=== PATIENT | female | born 1970 | race Caucasian/White ===

== ENCOUNTER 2018-08-30 05:27 | Day surgery (SDC) | payer OTHER ==
[~2018-08-30] VITALS: Ht 177.8 cm; Wt 85.8 kg
[2018-08-30] VITALS (12 sets, daily range): BP systolic 105–117; BP diastolic 20–73; PULSE 64–76; RESP 14–18; Ht 177.8 cm; Wt 85.8 kg
[2018-08-30] MEDS ORDERED: CEFAZOLIN 2 GM/50 ML (PMX) 50 ML IVPB ONE (06:00)
[2018-08-30] MEDS ORDERED: SOD CHLORIDE 0.9% 1,000 ML IV SCH (06:00)
[2018-08-30] MEDS ORDERED: MULTI PO (06:42)
[2018-08-30] MEDS ORDERED: CALC1TAB79 PO (06:43)
[2018-08-30] MEDS ORDERED: FER325 PO (06:43)
[2018-08-30] MEDS ORDERED: MIDAZOLAM 1 MG/ML 2 ML INJ ONE (07:23)
[2018-08-30] MEDS ORDERED: FENTAnyl 50 MCG/ML VIAL ONE (07:23)
[2018-08-30] MEDS ORDERED: LIDOCAINE 100 MG SYRINGE ONE (07:23)
[2018-08-30] MEDS ORDERED: PROPOFOL 100 ML ONE (07:23)
--- NOTE | 2018-08-30 07:27 | PREAC ---
Date/Time of Note Date/Time of Note DATE: 08/30/18 TIME: 07:16 Anesthesia Eval and Record Evaluation Time Pre-Procedure Interview DATE: 08/30/18 TIME: 07:16 Age 48 Sex female NPO: 8 hrs Preoperative diagnosis left breast mass Planned procedure left breast mass exxcision Past Medical History Past Medical History: None Surgery & Anesthesia Issues Other issues Meds Anticoagulation: No Beta Juan within 24 hr: No Reason Beta Juan not given: Other Reported Medications Ferrous Sulfate* (Ferrous Sulfate*) 325 Mg Tabec, 325 MG PO DAILY, TAB 08/30/18 Calcium Carbonate/Vitamin D3 (Oysco 500+D Tablet) 1 Each Tablet, 1 EACH PO DAILY, TAB 08/30/18 Multivitamins* (Theragran*) 1 Tab Tab, 1 TAB PO DAILY, TAB 08/30/18 Current Medications Sodium Chloride 1,000 ml @ 75 mls/hr [id number] IV Last administered on 08/30/18at 06:39; Admin Dose 75 MLS/HR; Start 08/30/18 at 06:00; Stop 08/30/18 at 18:00 Meds reviewed: Yes Allergies Coded Allergies: No Known Drug Allergy (Verified Allergy, Unknown, 08/30/18) Allergies Reviewed: No Labs/Studies Labs Reviewed: Reviewed by anesthesiologist test: Negative Pre-procedure Exam Last vitals Vital Signs Date Temp Pulse Resp B/P (MAP) Pulse Ox O2 O2 Flow FiO2 Time Delivery Rate 08/30/18 98.0 69 18 117/69 99 Room Air 06:24 (85) Airway: Adequate mouth opening Mallampati: Mallampati I Teeth: Normal Lung: Normal Heart: Normal ASA Physical Status ASA physical status: 1 Emergency: None Planned Anesthetic General/MAC: LMA Pre-operative Attestations Prior to commencing anesthesia and surgery, the patient was re-evaluated, there was verification of: *The patient's identity *The results of appropriate recent lab work and preoperative vital signs *The above evaluation not changing prior to induction *Anesthetic plan, risk benefits, alternative and complications discussed with patient/family; questions answered; patient/family understands, accepts and wishes to proceed. ADAIR MACARIO MD August 30, 2018 07:27
[2018-08-30] MEDS ORDERED: BUPIVACAINE 0.25%/EPI (SDV) 30 ML INJ ONE (07:40)
[2018-08-30] MEDS ORDERED: DEXAMETHASONE 4 MG/ML 5 ML INJ ONE (07:50)
[2018-08-30] MEDS ORDERED: ONDANSETRON 4 MG INJ ONE (07:50)
[2018-08-30] MEDS ORDERED: CEFAZOLIN 1 GM INJ ONE (07:50)
--- NOTE | 2018-08-30 08:29 | OPR ---
Date/Time of Note Date/Time of Note DATE: 08/30/18 TIME: 08:22 Operative Report Procedure Date: August 30, 2018 Preoperative Diagnosis Left breast mass Postoperative Diagnosis Left breast mass Operation/Procedure Performed Excision of left breast mass Surgeon see signature line [employer] Worker None Anesthesia Type: general Anesthesiologist: ADAIR MACARIO MD Estimated Blood Loss: minimal Transfusion none Specimen Left breast mass Grafts/Implants none Complications none Pt Condition Post Procedure: stable Disposition: PACU Indications Patient is a 48-year-old female who presented to the office with a left breast mass. The patient had an ultrasound which showed a mass in the region of 11:00-12:00 of the left breast. Ultrasound-guided biopsy showed ductal hyperplasia, sclerosing adenosis, and pseudo-angiomatous stromal hyperplasia. Given the above findings the patient was scheduled for elective excision of the left breast mass for complete excision and definitive pathological diagnosis. All risks and benefits of the procedure including, but not limited to: Wound infection, excessive bleeding, postoperative seroma/hematoma formation, possible need for subsequent surgeries, loss of nipple areolar sensation, etc. were explained to the patient in full detail. She fully understood and wished to proceed with the procedure. Informed consent was obtained. Procedure Description The patient was brought to the operating room and placed supine on the operating table. Bilateral sequential compression devices were placed on both lower extremities. A dose of broad-spectrum perioperative intravenous antibiotics was given. The patient's left breast mass which was palpable in the 11-12 o'clock location of the left breast at the areolar border was preoperatively marked and confirmed with the patient in the holding area. After the induction of smooth general anesthesia the patient's left breast and chest wall were prepped and draped in standard surgical fashion. After performance of the surgical timeout 0.25% Marcaine with epinephrine was injected around the area of the incision. An incision was then made using a 15 blade scalpel from approximately the 11:00 location to the 1:00 location of the left breast, at the areolar border. Incision was carried down through the skin and subcutaneous tissues to the level of breast tissue using sharp dissection and Bovie electrocautery. Flaps were then raised circumferentially. The mass was palpated and identified. Circumferential core of tissue was then dissected around the mass down to the level of the chest wall. There was fibrous replacement of the deep breast tissue identified. The specimen was then transected at its base. Marking sutures were used to madi the superior and medial aspects. Specimen was then passed off the field. At this point hemostasis was inspected for and noted to be total. The wound cavity was irrigated and the irrigant returned clear. The wound was then closed in layers using interrupted 3-0 Vicryl sutures for the dermal layer. The skin was then reapproximated using a running 4-0 Monocryl suture in subcuticular fashion. Incision was cleaned and Steri-Strips were applied as well as sports bra. The patient was then awoken from anesthesia and transferred to the recovery room in stable condition. All counts were correct at the end of the case 2. ELEAZAR POND MD August 30, 2018 08:29
[2018-08-30] MEDS ORDERED: MEPERIDINE 25 MG INJ IV PRN (08:30)
[2018-08-30] MEDS ORDERED: ONDANSETRON 4 MG INJ IV PRN ×2 (08:30)
[2018-08-30] MEDS ORDERED: DIPHENHYDRAMINE 50 MG INJ IV PRN (08:30)
[2018-08-30] MEDS ORDERED: IBUPROFEN 600 MG TAB PO PRN (08:30)
[2018-08-30] MEDS ORDERED: HYDROmorphONE 1 MG/5 ML IV SYRINGE IV PRN ×3 (08:30)
[2018-08-30] MEDS ORDERED: KETOROLAC 30 MG INJ IV PRN (08:30)
--- NOTE | 2018-08-30 09:38 | PAC ---
Date/Time of Note Date/Time of Note DATE: 08/30/18 TIME: 09:38 Post-Anesthesia Notes Post-Anesthesia Note Last documented vital signs Vital Signs Date Temp Pulse Resp B/P (MAP) Pulse Ox O2 O2 Flow FiO2 Time Delivery Rate 08/30/18 64 16 109/67 98 Room Air 09:08 (81) 08/30/18 8.0 08:43 08/30/18 98.5 08:30 Activity: WNL Respiratory function: WNL Cardiovascular function: WNL Mental status: Baseline Pain reasonably controlled: Yes Hydration appropriate: Yes Nausea/Vomiting absent: Yes ADAIR MACARIO MD August 30, 2018 09:38
== END 2018-08-30 09:45 | disposition home or self-care (01) ==
LOC: SDS 05:27
PROVIDERS: ATTEND Surgery
DX: D24.2 Benign neoplasm of left breast (principal); N60.22 Fibroadenosis of left breast
CPT/HCPCS: 19120; 88307; J0690; J1100; J2001; J2250; J2405; J3010; Z7512; Z7610